=== PATIENT | female | born 1980 | race Caucasian/White ===

== ENCOUNTER → 2021-12-24 | Outpatient (REF) ==
[~2021-12-24] MED LIST: ACET-683 PO; METF750T36 PO; NORE5TAB PO; ZOLO100T PO
== END ==
LOC: M LABSMTC 10:19
PROVIDERS: ATTEND Family Medicine
DX: Z11.52 Encounter for screening for COVID-19 (principal)

== ENCOUNTER → 2024-09-15 | Outpatient (CLI) | payer BC ==
[2024-09-15 14:36] LABS: CHOLESTEROL RISK RATIO 6.92 (<5); HDL CHOLESTEROL 26.7 MG/DL (>40); LDL CHOLESTEROL 119.5 MG/DL (<100); NON-HDL-C 158.3 MG/DL
[2024-09-15 15:00] LABS: HEMOGLOBIN A1c 6.7 % (4.0-6.0)
== END ==
LOC: M PLALAB 10:25
PROVIDERS: ATTEND Nurse Practitioner
DX: R73.03 Prediabetes (principal)

== ENCOUNTER → 2024-09-15 | Outpatient (CLI) | payer BC ==
[2024-09-15 14:38] LABS: FOLLICLE STIMULATING HORMONE 5.6 mIU/ML
[2024-09-15 14:40] LABS: LUTEINIZING HORMONE 3.2 mIU/ML
[2024-09-16 13:02] LABS: INSULIN LEVEL 53.8 uIU/mL (<=18.4)
== END ==
LOC: M PLALAB 10:23
PROVIDERS: ATTEND Nurse Practitioner Family
DX: N91.2 Amenorrhea, unspecified (principal)